=== PATIENT | male | born 1990 | race Two or more races ===

== ENCOUNTER 2023-03-09 05:15 | Emergency (ER) | payer OTHER ==
[~2023-03-09] VITALS: Ht 182.9 cm; Wt 74.8 kg
[~2023-03-09 05:15] MED LIST: ROBITUSSIN-DM118 ML PO; TRAMADOL HCL50 MG PO
== END 2023-03-09 10:40 | disposition home or self-care (01) ==
LOC: ER 05:15
DX: R53.81 Other malaise (principal); R07.89 Other chest pain; R06.02 Shortness of breath; J40 Bronchitis, not specified as acute or chronic; Z20.822 Contact with and (suspected) exposure to COVID-19; Z91.018 Allergy to other foods

== ENCOUNTER → 2023-04-22 | Emergency (ER) | payer OTHER ==
[~2023-04-22] VITALS: Ht 185.4 cm; Wt 78.5 kg
[~2023-04-22] MED LIST changes: +BUTALB-ASPIRIN1 EACH PO
== END | disposition left against medical advice (07) ==
LOC: ER 23:18
DX: Z53.21 Procedure and treatment not carried out due to patient leaving prior to being seen by health care provider (principal)

== ENCOUNTER 2023-04-25 08:40 | Emergency (ER) | payer OTHER ==
[~2023-04-25] VITALS: Ht 185.4 cm; Wt 79.4 kg
[~2023-04-25 08:40] MED LIST changes: -BUTALB-ASPIRIN1 EACH PO
[2023-04-25] MEDS ORDERED: BUTALB-ASPIRIN1 EACH PO (13:36)
== END 2023-04-25 13:37 | disposition home or self-care (01) ==
LOC: ER 08:40
DX: R53.81 Other malaise (principal); G43.909 Migraine, unspecified, not intractable, without status migrainosus; Z20.822 Contact with and (suspected) exposure to COVID-19; Z91.013 Allergy to seafood

== ENCOUNTER 2023-05-31 11:33 | Emergency (ER) | payer OTHER ==
[~2023-05-31] VITALS: Ht 185.4 cm; Wt 84.4 kg
[~2023-05-31 11:33] MED LIST changes: +BUTALB-ASPIRIN1 EACH PO
[2023-05-31] MEDS ORDERED: ALLERGY RELIE15.8 ML NASAL (13:51)
== END 2023-05-31 14:03 | disposition home or self-care (01) ==
LOC: ER 11:33
DX: R09.81 Nasal congestion (principal); H54.7 Unspecified visual loss; Z20.822 Contact with and (suspected) exposure to COVID-19; Z91.013 Allergy to seafood

== ENCOUNTER 2023-10-28 11:45 | Emergency (ER) | payer OTHER ==
[~2023-10-28] VITALS: Ht 185.4 cm; Wt 83.9 kg
[~2023-10-28 11:45] MED LIST changes: +ALLERGY RELIE15.8 ML NASAL
== END 2023-10-28 13:55 | disposition home or self-care (01) ==
LOC: ER 11:45
DX: N48.9 Disorder of penis, unspecified (principal); Z91.013 Allergy to seafood